=== PATIENT | female | born 1990 ===

== ENCOUNTER 2022-03-11 08:45 | Outpatient (CLI) | payer OTHER | END 2022-03-11 10:35 | disposition home or self-care (01) | LOC: PRENATAL 08:45 | PROVIDERS: ATTEND Obstetrics & Gynecology Maternal & Fetal Medicine | DX: O36.80X0 Pregnancy with inconclusive fetal viability, not applicable or unspecified (principal); Z36 Encounter for antenatal screening of mother; Z14.8 Genetic carrier of other disease; Z3A.13 13 weeks gestation of pregnancy ==

== ENCOUNTER 2022-05-05 08:14 | Outpatient (CLI) | payer OTHER | END 2022-05-05 09:40 | disposition home or self-care (01) | LOC: PRENATAL 08:14 | PROVIDERS: ATTEND Obstetrics & Gynecology Maternal & Fetal Medicine | DX: O35.9XX0 Maternal care for (suspected) fetal abnormality and damage, unspecified, not applicable or unspecified (principal); O35.3XX0 Maternal care for (suspected) damage to fetus from viral disease in mother, not applicable or unspecified; Z3A.21 21 weeks gestation of pregnancy ==

== ENCOUNTER 2022-07-22 09:09 | Outpatient (CLI) | payer OTHER | END 2022-07-22 09:39 | disposition home or self-care (01) | LOC: PRENATAL 09:09 | PROVIDERS: ATTEND Obstetrics & Gynecology Maternal & Fetal Medicine | DX: O26.849 Uterine size-date discrepancy, unspecified trimester (principal); O35.9XX0 Maternal care for (suspected) fetal abnormality and damage, unspecified, not applicable or unspecified; O36.8199 Decreased fetal movements, unspecified trimester, other fetus; Z3A.32 32 weeks gestation of pregnancy ==

== ENCOUNTER 2022-09-07 12:02 | Inpatient (IN) | payer OTHER ==
[~2022-09-07] VITALS: Ht 162.6 cm; Wt 102.5 kg
[2022-09-13] MEDS ORDERED: IRON18 MG PO (21:03)
[2022-09-13] MEDS ORDERED: PRENATAL TABLE1 EAC1 (21:04)
[2022-09-13] MEDS ORDERED: ZYRTEC10 MG PO (21:05)
== END 2022-09-17 16:04 | disposition home or self-care (01) | DRG 788 ==
LOC: LDR 09-13 19:36 → OB/GYN 09-15 10:57
PROVIDERS: ADMIT Obstetrics & Gynecology; ATTEND Obstetrics & Gynecology
PROC: 3E0P7VZ Introduction of Hormone into Female Reproductive, Via Natural or Artificial Opening (ICD-10-PCS; 2022-09-13)
PROC: 4A1HXCZ Monitoring of Products of Conception, Cardiac Rate, External Approach (ICD-10-PCS; 2022-09-13)
PROC: 10D00Z1 Extraction of Products of Conception, Low, Open Approach (ICD-10-PCS; principal; 2022-09-14)
PROC: 3E033VJ Introduction of Other Hormone into Peripheral Vein, Percutaneous Approach (ICD-10-PCS; 2022-09-14)
DX: O82 Encounter for cesarean delivery without indication (principal); O61.0 Failed medical induction of labor; Z3A.39 39 weeks gestation of pregnancy; Z37.0 Single live birth; Z20.822 Contact with and (suspected) exposure to COVID-19

== ENCOUNTER 2022-09-24 02:37 | Emergency (ER) | payer OTHER ==
[~2022-09-24] VITALS: Ht 162.6 cm; Wt 94.8 kg
[~2022-09-24 02:37] MED LIST: IRON18 MG PO; PRENATAL TABLE1 EAC1; ZYRTEC10 MG PO
[2022-09-24] MEDS ORDERED: CEPHALEXIN125 MG/5 M PO (02:47)
== END 2022-09-24 12:06 | disposition home or self-care (01) ==
LOC: ER 02:37
DX: O86.01 Infection of obstetric surgical wound, superficial incisional site (principal)